=== PATIENT | female | born 1975 | race Hispanic/Latino ===

== ENCOUNTER 2021-12-03 12:31 | Emergency (ER) | payer OTHER, SELFPAY ==
[2021-12-03] MEDS ORDERED: Ketorolac Tromethamine 30 MG/ML VIAL ONE (14:32)
[2021-12-03] MEDS ORDERED: Ondansetron PF 4 MG/2 ML Vial ONE (14:32)
== END 2021-12-03 16:55 | disposition home or self-care (01) ==
LOC: CSHERS 12:31
DX: M54.2 Cervicalgia (principal); E11.9 Type 2 diabetes mellitus without complications; V43.52XA Car driver injured in collision with other type car in traffic accident, initial encounter
CPT/HCPCS: 72125; 72128; 96374; 96375; J1885; J2405